=== PATIENT | female | born 1990 | race American Indian/Alaskan Native ===

== ENCOUNTER 2021-05-24 09:23 | Outpatient (CLI) | payer OTHER | END 2021-05-24 09:24 | disposition home or self-care (01) | LOC: LAB 09:23 | PROVIDERS: ATTEND Nurse Practitioner Women's Health | DX: O26.893 Other specified pregnancy related conditions, third trimester (principal); Z67.41 Type O blood, Rh negative; Z3A.36 36 weeks gestation of pregnancy | CPT/HCPCS: 86850; 86900; 86901; 96372; J2790 ==

== ENCOUNTER 2021-07-12 20:25 | Emergency (ER) | payer OTHER ==
[2021-07-12] MEDS ORDERED: SODIUM CHLORIDE 0.9% 1000 ML 1,000 ML IV ONE (21:25)
[2021-07-12] MEDS ORDERED: diphenhydrAMINE 50 MG/ML VIAL IV ONE (21:25)
[2021-07-12] MEDS ORDERED: METOCLOPRAMIDE 10 MG/2 ML INJ IV ONE (21:25)
--- NOTE | 2021-07-12 21:32 | Emergency Department Report ---
ED N/V/D HPI - General Chief complaint: Nausea/Vomiting/Diarrhea Stated complaint: 2 WEEKS DIARRHEA VOMITING Time Seen by Provider: 07/12/21 21:15 Source: patient Mode of arrival: Ambulatory Limitations: No Limitations - History of Present Illness Initial comments: 30-year-old -Portuguese female about 10 days presents emerged department complaining of a 4-day history of painless diarrhea which has progressed to nausea and vomiting over the last 2 days. States nausea and vomiting began to she tried to take some [id number] Imodium AD to alleviate her diarrhea she has no known causes, factors contributing to the diar patricia. Reports no hemoptysis no hematemesis hematochezia, no chest pain no palpitation, no abdominal pain, no hematuria no dysuria no fevers, chills, sweats. MD complaint: nausea, vomiting, diarrhea -: Gradual Associated Abdominal Pain: No Radiation: none Consistency: constant Associated Symptoms: malaise, weakness. denies: myalgias, chest pain, cough, headaches, nausea/vomiting, shortness of breath, syncope - Related Data Home Medications Medication Instructions Recorded Confirmed Last Taken Albuterol Sulfate 1 puff INHALATION DAILY PRN 06/26/21 06/26/21 06/25/21 Ferrous Sulfate [Iron 325 MG] 325 mg PO BID 06/26/21 06/26/21 06/25/21 Flovent Diskus 110 mcg INHALATION BID 06/26/21 06/26/21 06/25/21 Montelukast [Singulair] 10 mg PO HS 06/26/21 06/26/21 06/25/21 168/Iron/Folic/Omega3 1 each PO DAILY 06/26/21 06/26/21 06/25/21 [One-A-Day -1 Softgel] Previous Rx's Medication Instructions Recorded Last Taken Type Ferrous Sulfate [Ferrous Sulfate 325 mg PO BID #60 tablet. 06/29/21 Unknown Rx 324 MG] Ibuprofen [Motrin] 600 mg PO Q8H PRN #30 tablet 06/29/21 Unknown Rx Hyoscyamine Subl [Levsin Sl 0.125 0.125 mg SL Q4HR PRN #14 tablet 07/13/21 Unknown Rx TAB] Ondansetron [Zofran Odt] 4 mg PO Q8HR #20 tab.rapdis 07/13/21 Unknown Rx Allergies Allergy/AdvReac Type Severity Reaction Status Date / Time latex Allergy Severe Hives Verified 06/27/21 04:49 ED Review of Systems ROS: Stated complaint: 2 WEEKS DIARRHEA VOMITING Other details as noted in HPI Comment: All other systems reviewed and negative ED Past Medical Hx - Past Medical History Previous Medical History?: Yes Hx Congestive Heart Failure: No Hx Diabetes: No Hx Asthma: Yes (last attack 10/2020) Hx COPD: No - Surgical History Past Surgical History?: No - Social History Smoking Status: Former Smoker - Medications Home Medications: Home Medications Medication Instructions Recorded Confirmed Last Taken Type Albuterol Sulfate 1 puff INHALATION DAILY PRN 06/26/21 06/26/21 06/25/21 History Ferrous Sulfate [Iron 325 MG] 325 mg PO BID 06/26/21 06/26/21 06/25/21 History Flovent Diskus 110 mcg INHALATION BID 06/26/21 06/26/21 06/25/21 History Montelukast [Singulair] 10 mg PO HS 06/26/21 06/26/21 06/25/21 History 168/Iron/Folic/Omega3 1 each PO DAILY 06/26/21 06/26/21 06/25/21 History [One-A-Day -1 Softgel] Ferrous Sulfate [Ferrous Sulfate 325 mg PO BID #60 tablet. 06/29/21 Unknown Rx 324 MG] Ibuprofen [Motrin] 600 mg PO Q8H PRN #30 tablet 06/29/21 Unknown Rx Hyoscyamine Subl [Levsin Sl 0.125 0.125 mg SL Q4HR PRN #14 tablet 07/13/21 Unknown Rx TAB] Ondansetron [Zofran Odt] 4 mg PO Q8HR #20 tab.rapdis 07/13/21 Unknown Rx ED Physical Exam - General Limitations: No Limitations General appearance: alert, in no apparent distress - Head Head exam: Present: atraumatic, normocephalic - Eye Eye exam: Present: normal appearance, PERRL - ENT ENT exam: Present: normal exam, mucous membranes moist - Neck Neck exam: Present: normal inspection, full ROM - Respiratory Respiratory exam: Present: normal lung sounds bilaterally. Absent: respiratory distress - Cardiovascular Cardiovascular Exam: Present: regular rate, normal rhythm. Absent: systolic murmur, diastolic murmur, rubs, gallop - GI/Abdominal GI/Abdominal exam: Present: soft, normal bowel sounds - Extremities Exam Extremities exam: Present: normal inspection - Back Exam Back exam: Present: normal inspection - Neurological Exam Neurological exam: Present: alert, oriented X3 - Psychiatric Psychiatric exam: Present: normal affect, normal mood - Skin Skin exam: Present: warm, dry, intact, normal color. Absent: rash ED Course Vital Signs 07/12/21 20:29 Temperature 98.8 F Pulse Rate 110 H Respiratory 18 Rate Blood Pressure 94/51 O2 Sat by Pulse 99 Oximetry ED Medical Decision Making - Lab Data Result diagrams: 07/12/21 21:35 07/12/21 21:35 Critical care attestation.: If time is entered above; I have spent that time in minutes in the direct care of this critically ill patient, excluding procedure time. ED Disposition Clinical Impression: Hyperemesis, Diarrhea Disposition: HOME / SELF CARE / HOMELESS Is pt being admited?: No Does the pt Need Aspirin: No Condition: Stable Instructions: Diarrhea, Adult, Food Choices to Help Relieve Diarrhea, Adult, Nausea and Vomiting, Adult, [id number], Diarrhea, Adult, [id number] Additional Instructions: You have been evaluate emergency department for nausea vomiting with cough episodes of diarrhea. Suggest your evaluation suggest that your symptoms are most likely due to a viral illness which will improve on its own with rest and fluids. Please remember to drink plenty of fluids at home. Please follow-up with your primary care physician. Return to emergency department if you experience any worsening uncontrolled pain, inability to tolerate fluids by mouth, difficulty breathing, fevers greater than 100.5, recurrent vomiting or any other concerning symptoms. Prescriptions: Hyoscyamine Subl [Levsin Sl 0.125 TAB] 0.125 mg SL Q4HR PRN #14 tablet PRN Reason: Spasms Ondansetron [Zofran Odt] 4 mg PO Q8HR #20 tab.rapdis Referrals: GISSEL PERLA MD [Staff Physician] - 3-5 Days PRIMARY CARE, [Primary Care Provider] - 3-5 Days
[2021-07-12 21:56] LABS: Hematocrit 33.8 % (30.3-42.9); Mean Corpuscular HGB Conc 32 % (30-34); Mean Corpuscular Volume 92 fl (79-97); Platelet Count 193 K/mm3 (140-440); Red Blood Count 3.69 M/mm3 (3.65-5.03); Red Cell Distribution Width 15.9 % (13.2-15.2)
[2021-07-12 22:12] LABS: Alanine Aminotransferase 8 units/L (7-56); Albumin 2.8 g/dL (3.9-5); BUN/Creatinine Ratio 11; Blood Urea Nitrogen 12 mg/dL (7-17); Calcium 8.2 mg/dL (8.4-10.2); Hemolysis Index 17
[2021-07-13 01:33] LABS: Bilirubin,Urine NEG (Negative); Blood,Urine MOD (Negative); Color,Urine Yellow (Yellow); Mucus,Urine 2+ /HPF; Urobilinogen,Urine < 2.0 mg/dL (<2.0)
[2021-07-13 04:31] VITALS: BP 101/58
[2021-07-13] MEDS ORDERED: ONDANSETRON 4 MG ODT TAB PO ONE (04:35)
[2021-07-13 05:25] LABS: Total Cells Counted 100
[2021-07-13 05:26] LABS: Platelet Estimate Consistent w Auto; RBC Morphology Normal
== END 2021-07-13 04:40 | disposition home or self-care (01) ==
LOC: ED 20:25
DX: R11.10 Vomiting, unspecified (principal); R19.7 Diarrhea, unspecified; J45.909 Unspecified asthma, uncomplicated; Z87.891 Personal history of nicotine dependence; Z91.040 Latex allergy status; Z79.899 Other long term (current) drug therapy
CPT/HCPCS: 36415; 80053; 81001; 83690; 85007; 85025; 87086; 96361; 96374; 96375; 99283; J1200; J2765; J7030; J3490; Q0162

== ENCOUNTER 2021-07-21 07:16 | Observation (INO) | payer OTHER ==
[2021-07-21] MEDS ORDERED: ONDANSETRON 4 MG/2 ML INJ IV ONE (08:13)
[2021-07-21] MEDS ORDERED: MORPHINE 4 MG/1 ML INJ IV ONE ×2 (08:13→14:27)
--- NOTE | 2021-07-21 08:49 | XRay Report ---
CHEST 1 VIEW INDICATION: sob, peripheral edema. COMPARISON: 07/13/2021 FINDINGS: Support devices: None. Heart: Within normal limits. Lungs/Pleura: No acute air space or interstitial disease. Additional findings: None. IMPRESSION: No acute findings. Signer Name: Jamey Kay Jr, MD Signed: 07/21/2021 8:44 AM Workstation Name: [id number]
[2021-07-21 08:51] LABS: Basophils % (Auto) 0.5 % (0.0-1.8); Eosinophils # (Auto) 0.1 K/mm3 (0.0-0.4); Eosinophils % (Auto) 0.9 % (0.0-4.3); Hematocrit 27.4 % (30.3-42.9); Hemoglobin 8.7 gm/dl (10.1-14.3); Lymphocytes # (Auto) 1.3 K/mm3 (1.2-5.4); Lymphocytes % (Auto) 12.7 % (13.4-35.0); Mean Corpuscular HGB Conc 32 % (30-34); Mean Corpuscular Volume 91 fl (79-97); Monocytes # (Auto) 0.8 K/mm3 (0.0-0.8); Monocytes % (Auto) 8.1 % (0.0-7.3); Platelet Count 538 K/mm3 (140-440); Red Blood Count 3.02 M/mm3 (3.65-5.03); Red Cell Distribution Width 15.7 % (13.2-15.2)
[2021-07-21 09:00] LABS: INR 1.22 (0.87-1.13)
--- NOTE | 2021-07-21 09:04 | Emergency Department Report ---
ED General Adult HPI - General Chief complaint: Pain General Stated complaint: swelling and body pain Time Seen by Provider: 07/21/21 08:02 Source: patient, old records reviewed Mode of arrival: Ambulatory Limitations: No Limitations - History of Present Illness Initial comments: 30-year-old female with a past medical history of asthma and vaginal delivery on June 28 presents to the hospital with complaints of progressive edema to lower extremities and hands for the past 4 days. Patient was discharged 5 days ago after a 4-day admission for sepsis and acute colitis which patient presented with nausea, vomiting, diarrhea, and fever. Patient was discharged on Levaquin. Patient reports for the last 3 days she has also had midsternal chest pain which feels like "a hollow feeling" and exacerbated by swallowing. Patient complains of shortness of breath while lying supine. No further nausea, vomiting or diarrhea reported. No history of hypertension or preeclampsia. Patient complains of moderate to severe pain to lower extremities which feels like "qvyt-zww-axdvurz". Pain exacerbated with ambulation. Patient is not currently breast-feeding. She is pumping and dumping due to Levaquin use Severity scale (0 -10): 4 - Related Data Home Medications Medication Instructions Recorded Confirmed Last Taken Albuterol Sulfate 1 puff INHALATION DAILY PRN 06/26/21 07/14/21 06/25/21 Ferrous Sulfate [Iron 325 MG] 325 mg PO BID 06/26/21 07/14/21 06/25/21 Flovent Diskus 110 mcg INHALATION BID 06/26/21 07/14/21 06/25/21 Montelukast [Singulair] 10 mg PO HS 06/26/21 07/14/21 06/25/21 168/Iron/Folic/Omega3 1 each PO DAILY 06/26/21 07/14/21 06/25/21 [One-A-Day -1 Softgel] Previous Rx's Medication Instructions Recorded Last Taken Type Ferrous Sulfate [Ferrous Sulfate 325 mg PO BID #60 tablet. 06/29/21 Unknown Rx 324 MG] Ondansetron [Zofran ODT TAB] 4 mg PO Q8HR #20 tab.rapdis 07/13/21 Unknown Rx Oxycodone HCl/Acetaminophen 1 each PO Q6HR PRN #20 tablet 07/17/21 Unknown Rx [Percocet 2.5/325 mg] levoFLOXacin [Levaquin TAB] 500 mg PO QDAY #5 tablet 07/17/21 Unknown Rx Allergies Allergy/AdvReac Type Severity Reaction Status Date / Time latex Allergy Severe Hives Verified 07/21/21 07:25 ED Review of Systems ROS: Stated complaint: swelling and body pain Other details as noted in HPI Comment: All other systems reviewed and negative ED Past Medical Hx - Past Medical History Previous Medical History?: Yes Hx Congestive Heart Failure: No Hx Diabetes: No Hx Asthma: Yes (last attack 10/2020) Hx COPD: No - Surgical History Past Surgical History?: No - Social History Smoking Status: Never Smoker - Medications Home Medications: Home Medications Medication Instructions Recorded Confirmed Last Taken Type Albuterol Sulfate 1 puff INHALATION DAILY PRN 06/26/21 07/14/21 06/25/21 History Ferrous Sulfate [Iron 325 MG] 325 mg PO BID 06/26/21 07/14/21 06/25/21 History Flovent Diskus 110 mcg INHALATION BID 06/26/21 07/14/21 06/25/21 History Montelukast [Singulair] 10 mg PO HS 06/26/21 07/14/21 06/25/21 History 168/Iron/Folic/Omega3 1 each PO DAILY 06/26/21 07/14/21 06/25/21 History [One-A-Day -1 Softgel] Ferrous Sulfate [Ferrous Sulfate 325 mg PO BID #60 tablet.dr 06/29/21 07/14/21 Unknown Rx 324 MG] Ondansetron [Zofran ODT TAB] 4 mg PO Q8HR #20 tab.rapdis 07/13/21 07/14/21 Unknown Rx Oxycodone HCl/Acetaminophen 1 each PO Q6HR PRN #20 tablet 07/17/21 Unknown Rx [Percocet 2.5/325 mg] levoFLOXacin [Levaquin TAB] 500 mg PO QDAY #5 tablet 07/17/21 Unknown Rx ED Physical Exam - General Limitations: No Limitations - Other Other exam information: General: No acute distress Head: Atraumatic Eyes: normal appearance ENT: Moist mucous membranes Neck: Normal appearance, no midline tenderness Chest: Clear to auscultation bilaterally CV: Regular rate and rhythm Abdomen: Soft, normal bowel sounds, nontender, nondistended, no rebound or guarding Back: Normal inspection Extremity: Bilateral pedal edema and lower extremity edema. Mild edema to bilateral hands Neuro: Alert O x 3, no facial asymmetry, speech clear, no gross motor sensory deficit Psych: Appropriate behavior Skin: No rash ED Course Vital Signs 07/21/21 07/21/21 07:30 08:32 Temperature 98.3 F 98 F Pulse Rate 89 Respiratory 24 16 Rate Blood Pressure 115/71 O2 Sat by Pulse 98 97 Oximetry ED Medical Decision Making - Lab Data Result diagrams: 07/21/21 08:24 07/21/21 08:24 Lab Results 07/21/21 07/21/21 07/21/21 Range/Units 08:24 08:24 08:24 WBC 10.3 (4.5-11.0) K/mm3 RBC 3.02 L (3.65-5.03) M/mm3 Hgb 8.7 L (10.1-14.3) gm/dl Hct 27.4 L (30.3-42.9) % MCV 91 (79-97) fl MCH 29 (28-32) pg MCHC 32 (30-34) % RDW 15.7 H (13.2-15.2) % Plt Count 538 H (140-440) K/mm3 Lymph % (Auto) 12.7 L (13.4-35.0) % [place] % (Auto) 8.1 H (0.0-7.3) % Eos % (Auto) 0.9 (0.0-4.3) % Baso % (Auto) 0.5 (0.0-1.8) % Lymph # (Auto) 1.3 (1.2-5.4) K/mm3 [place] # (Auto) 0.8 (0.0-0.8) K/mm3 Eos # (Auto) 0.1 (0.0-0.4) K/mm3 Baso # (Auto) 0.0 (0.0-0.1) K/mm3 Seg Neutrophils % 77.8 H (40.0-70.0) % Seg Neutrophils # 8.0 H (1.8-7.7) K/mm3 PT 16.7 H (12.2-14.9) Sec. INR 1.22 H (0.87-1.13) Sodium 141 (137-145) mmol/L Potassium 2.4 L* (3.6-5.0) mmol/L Chloride 100.6 (98-107) mmol/L Carbon Dioxide 26 (22-30) mmol/L Anion Gap 17 mmol/L BUN 3 L (7-17) mg/dL Creatinine 0.7 (0.6-1.2) mg/dL Estimated GFR > 60 ml/min BUN/Creatinine Ratio 4 % Glucose 113 H (65-100) mg/dL Calcium 7.7 L (8.4-10.2) mg/dL Magnesium 2.00 (1.7-2.3) mg/dL Total Bilirubin 0.20 (0.1-1.2) mg/dL AST 13 (5-40) units/L ALT 11 (7-56) units/L Alkaline Phosphatase 86 (35-129) units/L Total Creatine Kinase 44 (30-135) units/L NT-Pro-B Natriuret Pep 185.6 (0-450) pg/mL Total Protein 6.3 (6.3-8.2) g/dL Albumin 2.3 L (3.9-5) g/dL Albumin/Globulin Ratio 0.6 % - EKG Data -: EKG Interpreted by Hi EKG shows normal: sinus rhythm, intervals (QTC 446, OR interval 116), QRS complexes (QRS duration within normal range), ST-T waves Rate: normal (73) - EKG Data When compared to previous EKG there are: previous EKG unavailable - Radiology Data Radiology results: report reviewed CHEST 1 VIEW INDICATION: sob, peripheral edema. COMPARISON: 07/13/2021 FINDINGS: Support devices: None. Heart: Within normal limits. Lungs/Pleura: No acute air space or interstitial disease. Additional findings: None. IMPRESSION: No acute findings. DUPLEX DOPPLER LOWER EXTREMITY VEINS, BILATERAL INDICATION / CLINICAL INFORMATION: Leg swelling. TECHNIQUE: Duplex doppler imaging was performed through the veins of both lower extremities using venous compression and other maneuvers. COMPARISON: None available. FINDINGS: RIGHT COMMON FEMORAL VEIN: Negative. RIGHT FEMORAL VEIN: Negative. RIGHT POPLITEAL VEIN: Negative. RIGHT CALF VEINS: Negative. LEFT COMMON FEMORAL VEIN: Negative. LEFT FEMORAL VEIN: Negative. LEFT POPLITEAL VEIN: Negative. LEFT CALF VEINS: Negative. ADDITIONAL FINDINGS: None. IMPRESSION: 1. No sonographic evidence for DVT in either lower extremity. - Medical Decision Making 30-year female presents to the hospital with complaints of new onset of bilateral lower extremity edema and paresthesias. Also complains of edema to hands. Patient recently in the hospital for sepsis and colitis and did receive IV fluid hydration. Patient also has low albumin. The combination of these 2 things could be the cause of her peripheral edema. DVT exam negative in both extremities. No signs of liver failure liver failure or kidney failure. Margaret ent was discharged with a potassium 3.0 but was not prescribed oral potassium pills. Patient is no longer vomiting but still presents with significant hyperkalemia. No EKG findings noted. Patient supplemented with p.o. and IV potassium and will be admitted to the hospital for further potassium dee pplementation Critical Care Time: No Critical care attestation.: If time is entered above; I have spent that time in minutes in the direct care of this critically ill patient, excluding procedure time. ED Disposition Clinical Impression: Hypokalemia, Peripheral edema, Paresthesia of both feet Disposition: 02 SHORT TERM HOSPITAL Is pt being admited?: Yes Condition: Stable Time of Disposition: 11:14 (Dr agosto/hospitalist)
[2021-07-21 09:13] LABS: Alanine Aminotransferase 11 units/L (7-56); Albumin 2.3 g/dL (3.9-5); Blood Urea Nitrogen 3 mg/dL (7-17); Calcium 7.7 mg/dL (8.4-10.2); Hemolysis Index 3
[2021-07-21 09:18] LABS: BUN/Creatinine Ratio 4
[2021-07-21] MEDS ORDERED: POTASSIUM CHLORIDE ER 20 MEQ TAB PO ONE (09:49)
[2021-07-21] MEDS ORDERED: POTASSIUM CHLORIDE 10 MEQ 10 MEQ/100 ML BAG IV ONE (09:51)
--- NOTE | 2021-07-21 10:51 | Vascular Lab Report ---
DUPLEX DOPPLER LOWER EXTREMITY VEINS, BILATERAL INDICATION / CLINICAL INFORMATION: Leg swelling. TECHNIQUE: Duplex doppler imaging was performed through the veins of both lower extremities using venous cesar karlene and other maneuvers. COMPARISON: None available. FINDINGS: RIGHT COMMON FEMORAL VEIN: Negative. RIGHT FEMORAL VEIN: Negative. RIGHT POPLITEAL VEIN: Negative. RIGHT CALF VEINS: Negative. LEFT COMMON FEMORAL VEIN: Negative. LEFT FEMORAL VEIN: Negative. LEFT POPLITEAL VEIN: Negative. LEFT CALF VEINS: Negative. ADDITIONAL FINDINGS: None. IMPRESSION: 1. No sonographic evidence for DVT in either lower extremity. Signer Name: Isaias Cary MD Signed: 07/21/2021 10:47 AM Workstation Name: [id number]
--- NOTE | 2021-07-21 12:17 | Electrocardiograph Report ---
[facility] Test Date: 2021-07-21 Test Time: 07:42:06 Pat Name: SAVANNAH COHEN Department: Room: Gender: F Mental Retardation Nurse: TYRON : 1990 Requested By: TED BALLESTEROS Order Number: [id number] Reading MD: Reji Lowry Measurements Intervals [place] Rate: 73 P: 51 DC: 166 QRS: 41 QRSD: 86 T: -3 QT: 404 QTc: 446 Interpretive Statements Sinus rhythm Probable left atrial enlargement No previous ECG available for comparison Electronically Signed On 07-21-2021 12:16:52 EST by Reji Lowry
[2021-07-21 15:25] LABS: Bilirubin,Urine NEG (Negative); Blood,Urine SM (Negative); Color,Urine Straw (Yellow); Mucus,Urine FEW /HPF; Protein,Urine <15 mg/dL mg/dL (Negative); RBC,Urine < 1.0 /HPF (0.0-6.0); Urobilinogen,Urine < 2.0 mg/dL (<2.0)
[2021-07-21] MEDS ORDERED: ALBUTEROL 2.5 MG/3 ML NEBU IH PRN (20:58)
[2021-07-21] MEDS ORDERED: ONDANSETRON 4 MG/2 ML INJ IV PRN (20:59)
[2021-07-21] MEDS ORDERED: METOCLOPRAMIDE 10 MG/2 ML INJ IV PRN (20:59)
--- NOTE | 2021-07-21 21:07 | History and Physical Report ---
History of Present Illness Date of examination: 07/21/21 Date of admission: 07/21/21 11:25 Chief complaint: Lower extremity edema History of present illness: 30-year-old female with history of asthma and recent delivery was discharged by me 3 to 4 days ago after being treated for infectious colitis. Patient is on Levaquin for 5 days. Patient comes back for pedal edema and generalized weakness. In the emergency room patient was found to have a very low potassium level of 2.4--hence being admitted - Past Medical History --Previous Medical History?: Yes --Asthma: Yes (last attack 10/2020) - Surgical History --Past Surgical History?: No - Social History --Smoking Status: Never Smoker - Medications Home Medications: Home Medications Medication Instructions Recorded Confirmed Last Taken Type Albuterol Sulfate 1 puff INHALATION DAILY PRN 06/26/21 07/14/21 06/25/21 History Ferrous Sulfate [Iron 325 MG] 325 mg PO BID 06/26/21 07/14/21 06/25/21 History Flovent Diskus 110 mcg INHALATION BID 06/26/21 07/14/21 06/25/21 History Montelukast [Singulair] 10 mg PO HS 06/26/21 07/14/21 06/25/21 History 168/Iron/Folic/Omega3 1 each PO DAILY 06/26/21 07/14/21 06/25/21 History [One-A-Day -1 Softgel] Ferrous Sulfate [Ferrous Sulfate 325 mg PO BID #60 tablet. 06/29/21 07/14/21 Unknown Rx 324 MG] Ondansetron [Zofran ODT TAB] 4 mg PO Q8HR #20 tab.rapdis 07/13/21 07/14/21 Unknown Rx Oxycodone HCl/Acetaminophen 1 each PO Q6HR PRN #20 tablet 07/17/21 Unknown Rx [Percocet 2.5/325 mg] levoFLOXacin [Levaquin TAB] 500 mg PO QDAY #5 tablet 07/17/21 Unknown Rx Review of Systems ROS: Constitutional generalized weakness and pedal edema HEENT no sore throat no post nasal drip no diplopia Neck no neck stiffness no lymph gland enlargement Chest and lungs no shortness of breath cough or wheezing CVS no chest pain no diaphoresis no palpitations GI no nausea no vomiting no diarrhea Genitourinary system no dysuria no flank pain Musculoskeletal system no muscle pains no joint pains 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 Skin no rash no itching Psychiatric no depression no homicidal or suicidal tendencies Hematologic no lymphedema or bruising Endocrine no polydipsia no polyuria no cold intolerance no heat intolerance Medications and Allergies Allergies Allergy/AdvReac Type Severity Reaction Status Date / Time latex Allergy Severe Hives Verified 07/21/21 21:09 Home Medications Medication Instructions Recorded Confirmed Last Taken Type Albuterol Sulfate 1 puff INHALATION DAILY PRN 06/26/21 07/21/21 06/25/21 History Ferrous Sulfate [Iron 325 MG] 325 mg PO BID 06/26/21 07/21/21 06/25/21 History Flovent Diskus 110 mcg INHALATION BID 06/26/21 07/21/21 06/25/21 History Montelukast [Singulair] 10 mg PO HS 06/26/21 07/21/21 06/25/21 History 168/Iron/Folic/Omega3 1 each PO DAILY 06/26/21 07/21/21 06/25/21 History [One-A-Day -1 Softgel] Ferrous Sulfate [Ferrous Sulfate 325 mg PO BID #60 tablet.dr 06/29/21 07/21/21 Unknown Rx 324 MG] Ondansetron [Zofran ODT TAB] 4 mg PO Q8HR #20 tab.rapdis 07/13/21 07/21/21 Unknown Rx Oxycodone HCl/Acetaminophen 1 each PO Q6HR PRN #20 tablet 07/17/21 07/21/21 Unknown Rx [Percocet 2.5/325 mg] levoFLOXacin [Levaquin TAB] 500 mg PO QDAY #5 tablet 07/17/21 07/21/21 07/20/21 09:30 Rx Active Meds: Active Medications Acetaminophen (Acetaminophen 325 Mg Tab) 650 mg PO Q4H PRN PRN Reason: Pain MILD(1-3)/Fever >100.5/LEMONS Famotidine (Famotidine 20 Mg/2 Ml Inj) 20 mg IV BID KEZIA Heparin Sodium (Porcine) (Heparin 5,000 Unit/1 Ml Vial) 5,000 unit SUB-Q Q12HR KEZIA Sodium Chloride (Nacl 0.9% 1000 Ml) 1,000 mls @ 75 mls/hr IV DIRECT KEZIA Metoclopramide HCl (Metoclopramide 10 Mg/2 Ml Inj) 10 mg IV Q6H PRN PRN Reason: Nausea And Vomiting Miscellaneous Medication (Albuterol Sulfate) 2 puff INHALATION QID PRN PRN Reason: Bronchospasm Montelukast Sodium (Montelukast 10 Mg Tab) 10 mg PO HS KEZIA Ondansetron HCl (Ondansetron 4 Mg Odt Tab) 4 mg PO Q8HR KEZIA Ondansetron HCl (Ondansetron 4 Mg/2 Ml Inj) 4 mg IV Q8H PRN PRN Reason: Nausea And Vomiting Oxycodone/Acetaminophen (Oxycodone /Acetaminophen 5-325mg Tab) 1 tab PO Q6H PRN PRN Reason: Pain, Moderate (4-6) Sodium Chloride (Sodium Chloride 0.9% 10 Ml Flush Syringe) 10 ml IV BID KEZIA Sodium Chloride (Sodium Chloride 0.9% 10 Ml Flush Syringe) 10 ml IV PRN PRN PRN Reason: LINE FLUSH Exam - Constitutional Vitals: Temp Pulse Resp BP Pulse Ox 99.4 F 103 H 18 110/58 99 07/21/21 20:27 07/21/21 20:27 07/21/21 20:27 07/21/21 20:27 07/21/21 20:27 General appearance: Present: no acute distress, well-nourished - EENT Eyes: Present: PERRL ENT: hearing intact, clear oral mucosa - Neck Neck: Present: supple, normal ROM - Respiratory Respiratory effort: normal Respiratory: bilateral: CTA - Cardiovascular Heart rate: 78 Rhythm: regular Heart Sounds: Present: S1 & S2. Absent: rub, click - Extremities Extremities: pulses symmetrical, No edema Peripheral Pulses: within normal limits - Abdominal General gastrointestinal: Present: soft, non-tender, non-distended, normal bowel sounds Female genitourinary: Present: normal - Integumentary Integumentary: Present: clear, warm, dry - Musculoskeletal Musculoskeletal: gait normal, strength equal bilaterally - Psychiatric Psychiatric: appropriate mood/affect, intact judgment & insight - Neurologic Neurologic: CNII-XII intact, moves all extremities Results - Labs CBC & Chem 7: 07/22/21 06:00 07/21/21 08:24 Labs: Laboratory Last Values WBC 10.3 K/mm3 (4.5-11.0) 07/21/21 08:24 RBC 3.02 M/mm3 (3.65-5.03) L 07/21/21 08:24 Hgb 8.7 gm/dl (10.1-14.3) L 07/21/21 08:24 Hct 27.4 % (30.3-42.9) L 07/21/21 08:24 MCV 91 fl (79-97) 07/21/21 08:24 MCH 29 pg (28-32) 07/21/21 08:24 MCHC 32 % (30-34) 07/21/21 08:24 RDW 15.7 % (13.2-15.2) H 07/21/21 08:24 Plt Count 538 K/mm3 (140-440) H 07/21/21 08:24 Lymph % (Auto) 12.7 % (13.4-35.0) L 07/21/21 08:24 [place] % (Auto) 8.1 % (0.0-7.3) H 07/21/21 08:24 Eos % (Auto) 0.9 % (0.0-4.3) 07/21/21 08:24 Baso % (Auto) 0.5 % (0.0-1.8) 07/21/21 08:24 Lymph # (Auto) 1.3 K/mm3 (1.2-5.4) 07/21/21 08:24 [place] # (Auto) 0.8 K/mm3 (0.0-0.8) 07/21/21 08:24 Eos # (Auto) 0.1 K/mm3 (0.0-0.4) 07/21/21 08:24 Baso # (Auto) 0.0 K/mm3 (0.0-0.1) 07/21/21 08:24 Seg Neutrophils % 77.8 % (40.0-70.0) H 07/21/21 08:24 Seg Neutrophils # 8.0 K/mm3 (1.8-7.7) H 07/21/21 08:24 PT 16.7 Sec. (12.2-14.9) H 07/21/21 08:24 INR 1.22 (0.87-1.13) H 07/21/21 08:24 Sodium 141 mmol/L (137-145) 07/21/21 08:24 Potassium 2.4 mmol/L (3.6-5.0) L* 07/21/21 08:24 Chloride 100.6 mmol/L (98-107) 07/21/21 08:24 Carbon Dioxide 26 mmol/L (22-30) 07/21/21 08:24 Anion Gap 17 mmol/L 07/21/21 08:24 BUN 3 mg/dL (7-17) L 07/21/21 08:24 Creatinine 0.7 mg/dL (0.6-1.2) 07/21/21 08:24 Estimated GFR > 60 ml/min 07/21/21 08:24 BUN/Creatinine Ratio 4 % 07/21/21 08:24 Glucose 113 mg/dL (65-100) H 07/21/21 08:24 Calcium 7.7 mg/dL (8.4-10.2) L 07/21/21 08:24 Magnesium 2.00 mg/dL (1.7-2.3) 07/21/21 08:24 Total Bilirubin 0.20 mg/dL (0.1-1.2) 07/21/21 08:24 AST 13 units/L (5-40) 07/21/21 08:24 ALT 11 units/L (7-56) 07/21/21 08:24 Alkaline Phosphatase 86 units/L (35-129) 07/21/21 08:24 Total Creatine Kinase 44 units/L (30-135) 07/21/21 08:24 NT-Pro-B Natriuret Pep 185.6 pg/mL (0-450) 07/21/21 08:24 Total Protein 6.3 g/dL (6.3-8.2) 07/21/21 08:24 Albumin 2.3 g/dL (3.9-5) L 07/21/21 08:24 Albumin/Globulin Ratio 0.6 % 07/21/21 08:24 Urine Color Straw (Yellow) 07/21/21 13:28 Urine Turbidity Clear (Clear) 07/21/21 13:28 Urine pH 7.0 (5.0-7.0) 07/21/21 13:28 Ur Specific [place] 1.003 (1.003-1.030) 07/21/21 13:28 Urine Protein <15 mg/dl mg/dL (Negative) 07/21/21 13:28 Urine Glucose (UA) Neg mg/dL (Negative) 07/21/21 13:28 Urine Ketones Neg mg/dL (Negative) 07/21/21 13:28 Urine Blood Sm (Negative) 07/21/21 13:28 Urine Nitrite Neg (Negative) 07/21/21 13:28 Urine Bilirubin Neg (Negative) 07/21/21 13:28 Urine Urobilinogen < 2.0 mg/dL (<2.0) 07/21/21 13:28 Ur Leukocyte Esterase Neg (Negative) 07/21/21 13:28 Urine WBC (Auto) 2.0 /HPF (0.0-6.0) 07/21/21 13:28 Urine RBC (Auto) < 1.0 /HPF (0.0-6.0) 07/21/21 13:28 U Epithel Cells (Auto) < 1.0 /HPF (0-13.0) 07/21/21 13:28 Urine Mucus Few /HPF 07/21/21 13:28 Short CBC 07/21/21 07/22/21 Range/Units 08:24 06:00 WBC 10.3 9.0 (4.5-11.0) K/mm3 Hgb 8.7 L 8.2 L (10.1-14.3) gm/dl Hct 27.4 L 24.5 L (30.3-42.9) % Plt Count 538 H 571 H (140-440) K/mm3 BMP 07/21/21 08:24 Sodium 141 Potassium 2.4 L* Chloride 100.6 Carbon Dioxide 26 BUN 3 L Creatinine 0.7 Glucose 113 H Calcium 7.7 L Cardiac Enzymes 07/21/21 Range/Units 08:24 Total Creatine Kinase 44 (30-135) units/L Liver Function 07/21/21 Range/Units 08:24 Total Bilirubin 0.20 (0.1-1.2) mg/dL AST 13 (5-40) units/L ALT 11 (7-56) units/L Alkaline Phosphatase 86 (35-129) units/L Albumin 2.3 L (3.9-5) g/dL Urine 07/21/21 Range/Units 13:28 Urine Color Straw (Yellow) Urine pH 7.0 (5.0-7.0) Ur Specific [place] 1.003 (1.003-1.030) Urine Protein <15 mg/dl (Negative) mg/dL Urine Glucose (UA) Neg (Negative) mg/dL Assessment and Plan Advance Directives: Yes (Full code chief) VTE prophylaxis?: Chemical Plan of care discussed with patient/family: Yes - Patient Problems (1) Hypokalemia Current Visit: Yes Status: Acute Plan to address problem: Supplemented by IV and oral Patient to be discharged tomorrow if potassium was corrected (2) Peripheral edema Current Visit: Yes Status: Acute Plan to address problem: Secondary to low albumin level and nutritional (3) Infectious colitis Current Visit: Yes Status: Acute Plan to address problem: Resolved was on Levaquin (4) Asthma Current Visit: Yes Status: Inactive Qualifiers: Asthma complication type: unspecified Plan to address problem: Continue Singulair and albuterol inhalers as needed (5) DVT prophylaxis Current Visit: No Status: Acute Plan to address problem: On heparin and GI prophylaxis
[2021-07-21] MEDS: MONTELUKAST 10 MG TAB PO SCH (22:29)
[2021-07-21] MEDS: FAMOTIDINE 20 MG/2 ML INJ IV SCH (22:29)
[2021-07-21] MEDS: ACETAMINOPHEN 325 MG TAB PO PRN (22:29)
[2021-07-21] MEDS: ONDANSETRON 4 MG ODT TAB PO SCH (22:30)
[2021-07-21] MEDS: HEPARIN 5,000 UNIT/1 ML VIAL SUB-Q SCH (22:30)
[2021-07-21] MEDS: SODIUM CHLORIDE 0.9% 1000 ML 1,000 ML IV SCH (22:30)
[2021-07-22] MEDS: ONDANSETRON 4 MG ODT TAB PO SCH ×3 (05:13→21:31)
[2021-07-22] MEDS: ACETAMINOPHEN 325 MG TAB PO PRN (05:15)
[2021-07-22 07:11] LABS: Basophils % (Auto) 0.5 % (0.0-1.8); Eosinophils # (Auto) 0.2 K/mm3 (0.0-0.4); Hematocrit 24.5 % (30.3-42.9); Hemoglobin 8.2 gm/dl (10.1-14.3); Mean Corpuscular HGB Conc 34 % (30-34); Mean Corpuscular Volume 90 fl (79-97); Monocytes # (Auto) 0.6 K/mm3 (0.0-0.8); Monocytes % (Auto) 6.9 % (0.0-7.3); Platelet Count 571 K/mm3 (140-440); Red Blood Count 2.72 M/mm3 (3.65-5.03); Red Cell Distribution Width 16.2 % (13.2-15.2)
[2021-07-22 07:22] LABS: Blood Urea Nitrogen 5 mg/dL (7-17); Calcium 7.5 mg/dL (8.4-10.2); Hemolysis Index 21
[2021-07-22 07:29] LABS: BUN/Creatinine Ratio 7
[2021-07-22] MEDS: POTASSIUM CHLORIDE 10 MEQ 10 MEQ/100 ML BAG IV SCH ×4 (09:04→15:48)
[2021-07-22] MEDS: POTASSIUM CHLORIDE ER 20 MEQ TAB PO SCH ×2 (09:04→12:11)
[2021-07-22] MEDS: HEPARIN 5,000 UNIT/1 ML VIAL SUB-Q SCH ×2 (09:04→21:32)
[2021-07-22] MEDS: FAMOTIDINE 20 MG/2 ML INJ IV SCH ×2 (09:05→21:31)
--- NOTE | 2021-07-22 10:47 | Progress Note ---
Assessment and Plan Assessment and plan: 1) Hypokalemia Current Visit: Yes Status: Acute Plan to address problem: Supplemented by IV and oral Patient to be discharged tomorrow if potassium is corrected. Check BMP and magnesium in the morning (2) Peripheral edema Current Visit: Yes Status: Acute Plan to address problem: Secondary to low albumin level and nutritional. Has improved. Doppler ultrasound bilateral lower extremity negative for DVT. (3) Infectious colitis Current Visit: No Status: Resolved Plan to address problem: Resolved was on Levaquin (4) Asthma Current Visit: Yes Status: Inactive Qualifiers: Asthma complication type: unspecified Plan to address problem: Continue Singulair and albuterol inhalers as needed (5) DVT prophylaxis Current Visit: No Status: Acute Plan to address problem: On heparin and GI prophylaxis Disposition Plan: For discharge home tomorrow if hypokalemia is corrected. History Interval history: Still bilateral lower extremity pain. Lower extremity edema has improved. No shortness of breath of chest pain. No fever or chills. Hospitalist Physical - Constitutional Vitals: Temp Pulse Resp BP Pulse Ox 97.8 F 76 18 116/81 100 07/22/21 04:57 07/22/21 05:59 07/22/21 05:59 07/22/21 04:57 07/22/21 05:59 General appearance: Present: no acute distress, well-nourished - EENT Eyes: Present: PERRL, EOM intact ENT: hearing intact, clear oral mucosa - Neck Neck: Present: supple, normal ROM - Respiratory Respiratory effort: normal - Cardiovascular Rhythm: regular Heart Sounds: Present: S1 & S2 - Extremities Extremities: no ischemia, No edema, Full ROM - Abdominal General gastrointestinal: soft, non-tender, non-distended, normal bowel sounds - Psychiatric Psychiatric: appropriate mood/affect - Neurologic Neurologic: moves all extremities Results - Labs CBC & Chem 7: 07/22/21 06:00 07/22/21 06:00 Labs: Laboratory Last Values WBC 9.0 K/mm3 (4.5-11.0) 07/22/21 06:00 RBC 2.72 M/mm3 (3.65-5.03) L 07/22/21 06:00 Hgb 8.2 gm/dl (10.1-14.3) L 07/22/21 06:00 Hct 24.5 % (30.3-42.9) L 07/22/21 06:00 MCV 90 fl (79-97) 07/22/21 06:00 MCH 30 pg (28-32) 07/22/21 06:00 MCHC 34 % (30-34) 07/22/21 06:00 RDW 16.2 % (13.2-15.2) H 07/22/21 06:00 Plt Count 571 K/mm3 (140-440) H 07/22/21 06:00 Lymph % (Auto) 11.0 % (13.4-35.0) L 07/22/21 06:00 [place] % (Auto) 6.9 % (0.0-7.3) 07/22/21 06:00 Eos % (Auto) 2.0 % (0.0-4.3) 07/22/21 06:00 Baso % (Auto) 0.5 % (0.0-1.8) 07/22/21 06:00 Lymph # (Auto) 1.0 K/mm3 (1.2-5.4) L 07/22/21 06:00 [place] # (Auto) 0.6 K/mm3 (0.0-0.8) 07/22/21 06:00 Eos # (Auto) 0.2 K/mm3 (0.0-0.4) 07/22/21 06:00 Baso # (Auto) 0.0 K/mm3 (0.0-0.1) 07/22/21 06:00 Seg Neutrophils % 79.6 % (40.0-70.0) H 07/22/21 06:00 Seg Neutrophils # 7.2 K/mm3 (1.8-7.7) 07/22/21 06:00 PT 16.7 Sec. (12.2-14.9) H 07/21/21 08:24 INR 1.22 (0.87-1.13) H 07/21/21 08:24 Sodium 143 mmol/L (137-145) 07/22/21 06:00 Potassium 2.7 mmol/L (3.6-5.0) L* 07/22/21 06:00 Chloride 104.2 mmol/L (98-107) 07/22/21 06:00 Carbon Dioxide 29 mmol/L (22-30) 07/22/21 06:00 Anion Gap 13 mmol/L 07/22/21 06:00 BUN 5 mg/dL (7-17) L 07/22/21 06:00 Creatinine 0.7 mg/dL (0.6-1.2) 07/22/21 06:00 Estimated GFR > 60 ml/min 07/22/21 06:00 BUN/Creatinine Ratio 7 % 07/22/21 06:00 Glucose 94 mg/dL (65-100) 07/22/21 06:00 Calcium 7.5 mg/dL (8.4-10.2) L 07/22/21 06:00 Magnesium 2.00 mg/dL (1.7-2.3) 07/21/21 08:24 Total Bilirubin 0.20 mg/dL (0.1-1.2) 07/21/21 08:24 AST 13 units/L (5-40) 07/21/21 08:24 ALT 11 units/L (7-56) 07/21/21 08:24 Alkaline Phosphatase 86 units/L (35-129) 07/21/21 08:24 Total Creatine Kinase 44 units/L (30-135) 07/21/21 08:24 NT-Pro-B Natriuret Pep 185.6 pg/mL (0-450) 07/21/21 08:24 Total Protein 6.3 g/dL (6.3-8.2) 07/21/21 08:24 Albumin 2.3 g/dL (3.9-5) L 07/21/21 08:24 Albumin/Globulin Ratio 0.6 % 07/21/21 08:24 Urine Color Straw (Yellow) 07/21/21 13:28 Urine Turbidity Clear (Clear) 07/21/21 13:28 Urine pH 7.0 (5.0-7.0) 07/21/21 13:28 Ur Specific [place] 1.003 (1.003-1.030) 07/21/21 13:28 Urine Protein <15 mg/dl mg/dL (Negative) 07/21/21 13:28 Urine Glucose (UA) Neg mg/dL (Negative) 07/21/21 13:28 Urine Ketones Neg mg/dL (Negative) 07/21/21 13:28 Urine Blood Sm (Negative) 07/21/21 13:28 Urine Nitrite Neg (Negative) 07/21/21 13:28 Urine Bilirubin Neg (Negative) 07/21/21 13:28 Urine Urobilinogen < 2.0 mg/dL (<2.0) 07/21/21 13:28 Ur Leukocyte Esterase Neg (Negative) 07/21/21 13:28 Urine WBC (Auto) 2.0 /HPF (0.0-6.0) 07/21/21 13:28 Urine RBC (Auto) < 1.0 /HPF (0.0-6.0) 07/21/21 13:28 U Epithel Cells (Auto) < 1.0 /HPF (0-13.0) 07/21/21 13:28 Urine Mucus Few /HPF 07/21/21 13:28 [place]/IV: Voiding Method Toilet Active Medications - Current Medications Current Medications: Generic Name Dose Route Start Last Admin Trade Name Freq PRN Reason Stop Dose Admin Acetaminophen 650 mg 07/21/21 20:59 07/22/21 05:15 Acetaminophen 325 Mg Tab PO 650 mg Q4H PRN Administration Pain MILD(1-3)/Fever >100.5/LEMONS Albuterol 2.5 mg 07/21/21 20:58 Albuterol 2.5 Mg/3 Ml Nebu IH QID PRN Bronchospasm Famotidine 20 mg 07/21/21 22:00 07/22/21 09:05 Famotidine 20 Mg/2 Ml Inj IV 20 mg BID KEZIA Administration Heparin Sodium (Porcine) 5,000 unit 07/21/21 22:00 07/22/21 09:04 Heparin 5,000 Unit/1 Ml Vial SUB-Q 5,000 unit Q12HR KEZIA Administration Sodium Chloride 1,000 mls @ 75 mls/hr 07/21/21 21:00 07/21/21 22:30 Nacl 0.9% 1000 Ml IV 75 mls/hr DIRECT KEZIA Administration Potassium Chloride 10 meq in 100 mls @ 100 mls/hr 07/22/21 08:00 07/22/21 09:04 Kcl 10meq/100ml IV 07/22/21 11:59 100 mls/hr Q1H KEZIA Administration Metoclopramide HCl 10 mg 07/21/21 20:59 Metoclopramide 10 Mg/2 Ml Inj IV Q6H PRN Nausea And Vomiting Montelukast Sodium 10 mg 07/21/21 22:00 07/21/21 22:29 Montelukast 10 Mg Tab PO 10 mg HS KEZIA Administration Ondansetron HCl 4 mg 07/21/21 22:00 07/22/21 05:13 Ondansetron 4 Mg Odt Tab PO 4 mg Q8HR KEZIA Administration Ondansetron HCl 4 mg 07/21/21 20:59 Ondansetron 4 Mg/2 Ml Inj IV Q8H PRN Nausea And Vomiting Oxycodone/Acetaminophen 1 tab 07/21/21 20:59 Oxycodone /Acetaminophen 5-325mg Tab PO Q6H PRN Pain, Moderate (4-6) Potassium Chloride 40 meq 07/22/21 08:00 07/22/21 09:04 Potassium Chloride Er 20 Meq Tab PO 07/22/21 12:01 40 meq Q4H KEZIA Administration Sodium Chloride 10 ml 07/21/21 22:00 07/22/21 09:05 Sodium Chloride 0.9% 10 Ml Flush Syringe IV 10 ml BID KEZIA Administration Sodium Chloride 10 ml 07/21/21 20:59 Sodium Chloride 0.9% 10 Ml Flush Syringe IV PRN PRN LINE FLUSH
[2021-07-22] MEDS: oxyCODONE /ACETAMINOPHEN 5-325MG TAB PO PRN ×2 (11:20→17:35)
[2021-07-22] MEDS: SODIUM CHLORIDE 0.9% 1000 ML 1,000 ML IV SCH ×2 (13:46→21:47)
[2021-07-22] MEDS: MONTELUKAST 10 MG TAB PO SCH (21:31)
[2021-07-23] MEDS: oxyCODONE /ACETAMINOPHEN 5-325MG TAB PO PRN ×2 (02:43→15:23)
[2021-07-23] MEDS: ONDANSETRON 4 MG ODT TAB PO SCH ×2 (05:41→15:14)
[2021-07-23 07:38] LABS: Blood Urea Nitrogen 3 mg/dL (7-17); Calcium 7.9 mg/dL (8.4-10.2); Hemolysis Index 0
[2021-07-23 07:46] LABS: BUN/Creatinine Ratio 4
--- NOTE | 2021-07-23 07:53 | Discharge Summary ---
Providers - Providers Date of Admission: 07/21/21 11:25 Date of discharge: 07/23/21 Attending physician: LENIN CALVILLO MD Primary care physician: [employer] Hospitalization Reason for admission: Hypokalemia Condition: Stable Pertinent studies: Reviewed. Procedures: None. Hospital course: The patient is a 30-year-old female with past medical history of asthma and recent vaginal delivery who was discharged approximately 3-4 days ago and is currently being treated for infectious colitis with Levaquin. The patient presented with generalized weakness and pedal edema. The patient was found to have a potassium of 2.4 in the ED. Electrolytes were repleted. The patient was evaluated for DVT that was found to be negative on bilateral venous Dopplers. The patient is safe for medical discharge. Disposition: 01 HOME / SELF CARE / HOMELESS Final Discharge Diagnosis (Prints w/discharge instructions): Hypokalemia, infectious colitis, asthma Time spent for discharge: 30 minutes Core Measure Documentation - Palliative Care Palliative Care/ Comfort Measures: Not Applicable - Core Measures Any of the following diagnoses?: none - VTE Discharge Requirements Deep Vein Thrombosis/Pulmonary Embolism Present on Admission: No Has pt received <5 days of overlap therapy or INR<2.0: No Anticoagulant overlap therapy prescribed at discharge: No Contraindication No Overlap Therapy order at DC: Not Indicated - Acute DC Discharge Requirements Aspirin at discharge: No Reason for no aspirin on DC: Medical contraindication (Not indicated) SHARAD/ARB for LVSD if EF <40%: Not Applicable Beta winifred at discharge: No Reason for no beta winifred on DC: Medical contraindication (Not indicated) Statin for LDL = or >100 mg/dl on DC: Not Applicable - Heart Failure Discharge Requirements SHARAD/ARB for LVSD if EF <40%: Not Applicable Beta winifred at discharge: No Reason for no beta winifred on DC: Medical contraindication (Not indicated) - Stroke Discharge Requirements Statin for LDL = or >70 mg/dl on DC: Not Applicable Reason for no statin on DC: Not Indicated Anticoag for atrial fib/atrial flutter: Not Applicable Reason for no anticoag for AF/F on DC: Not Indicated Antithrombotic for ischemic stroke: No Reason for no antithrombotic on DC: Not Indicated Exam - Constitutional Vitals: Temp Pulse Resp BP Pulse Ox 97.8 F 70 16 110/66 96 07/23/21 05:09 07/23/21 05:09 07/23/21 05:09 07/23/21 05:09 07/23/21 05:09 General appearance: Present: no acute distress, well-nourished - EENT Eyes: Present: PERRL, EOM intact ENT: hearing intact, clear oral mucosa, dentition normal - Neck Neck: Present: supple, normal ROM - Respiratory Respiratory effort: normal Respiratory: bilateral: CTA - Cardiovascular Rhythm: regular Heart Sounds: Present: S1 & S2 - Extremities Extremities: no ischemia, pulses intact, pulses symmetrical, normal temperature, normal color, Full ROM Peripheral Pulses: within normal limits - Abdominal General gastrointestinal: Present: soft, non-tender, non-distended, normal bowel sounds Female genitourinary: Present: deferred - Rectal Rectal Exam: deferred - Integumentary Integumentary: Present: clear, warm, dry - Musculoskeletal Musculoskeletal: strength equal bilaterally - Psychiatric Psychiatric: appropriate mood/affect, intact judgment & insight, memory intact, cooperative - Neurologic Neurologic: CNII-XII intact, moves all extremities - Allied Health Allied health notes reviewed: nursing Plan Care Plan Goals: Patient discharging home safely. Assessment: Patient presented with generalized fatigue and found to have hypokalemia requiring repletion lesion. Patient was evaluated for possible DVT, and bilateral venous Dopplers were negative. Repeat labs show appropriate electrolyte repletion. Patient safe to discharge home. Follow up with: PRIMARY CAREMD [Primary Care Provider] - 3-5 Days
[2021-07-23] MEDS: SODIUM CHLORIDE 0.9% 1000 ML 1,000 ML IV SCH (08:47)
--- NOTE | 2021-07-23 09:39 | Electrocardiograph Report ---
[facility] Test Date: 2021-07-22 Test Time: 07:58:44 Pat Name: SAVANNAH COHEN Department: Room: A356 1 Gender: F Dietary Worker: RANDALL : 1990 Requested By: TED BALLESTEROS Order Number: [id number] Reading MD: Greg Stevenson Measurements Intervals [place] Rate: 66 P: 39 [place]: 167 QRS: 32 QRSD: 83 T: 7 QT: 431 QTc: 451 Interpretive Statements Sinus rhythm Compared to ECG 07/21/2021 07:42:06 No significant changes Electronically Signed On 07-23-2021 9:39:04 EST by Greg Stevenson
[2021-07-23] MEDS: ACETAMINOPHEN 325 MG TAB PO PRN (09:49)
[2021-07-23] MEDS: FAMOTIDINE 20 MG/2 ML INJ IV SCH (09:50)
[2021-07-23] MEDS: HEPARIN 5,000 UNIT/1 ML VIAL SUB-Q SCH (09:50)
[2021-07-23 12:14] VITALS: BP 106/74
== END 2021-07-23 17:45 | disposition home or self-care (01) ==
LOC: ED 07:16 → 3A 11:25
PROVIDERS: ADMIT Internal Medicine; ATTEND Student in an Organized Health Care Education/Training Program
DX: R60.0 Localized edema (principal); E87.6 Hypokalemia; R20.2 Paresthesia of skin; A09 Infectious gastroenteritis and colitis, unspecified; J45.909 Unspecified asthma, uncomplicated
CPT/HCPCS: 36415; 71045; 80048; 80053; 81001; 82550; 83735; 83880; 84132; 85025; 85610; 93005; 93970; 96361; 96365; 96366; 96372; 96375; 96376; 99285; G0378; J1644; J2270; J2405; J3480; J3490; J7030; Q0162